=== PATIENT | female | born 1980 | race African-American/Black ===

== ENCOUNTER 2016-09-04 10:27 | Emergency (ER) | payer OTHER ==
--- NOTE | ~2016-09-04 | CT4 ---
[facility]. [facility] A Service of [facility] RADIOLOGY TEXT RESULTS PATIENT: FABI BENSON LOCATION: SED : 82 UNIT #: [id number] AGE: [address]: Steffi Temple SEX: F ORDER DR: [id number] [address] [address] [id number] MR#: [id number] #: [id number] NAME: FABI BENSON. : 1980 SEX: F STUDY DATE/TIME: 09/04/2016 12:00 UNIT: SED ROOM: STUDY DESCRIPTION: CT Abd and Pelv Wo Cont Attending Physician: Steffi Temple Pa-C Ordering Physician: Physician Non-Staff Primary Care Physician: Primary Care Physician No MEDICAL IMAGING REPORT This report is preliminary unless electronic signature is present. EXAM Abdomen and pelvis CT, no contrast, 09/04/2016 INDICATIONS 36-year-old female with urinary tract infection and fever, protein and blood in the urine for 3 days. Status post cholecystectomy. TECHNIQUE Noncontrast abdomen and pelvis CT was performed. This CT exam was performed with one or more of the following radiation dose reduction techniques: Automatic exposure control, adjustment of mA and/or kV according to patient size, and iterative reconstruction. COMPARISON 06/30/[address] ABDOMEN: Exam markedly degraded by noncontrast technique. Included lung bases are clear. No effusion or pericardial effusion. Aorta unremarkable. Spleen, adrenal glands and pancreas are unremarkable. Gallbladder surgically absent. Liver unremarkable. Kidneys demonstrate no hydronephrosis on either side. Minimal, if any induration surrounding the proximal ureter on the right. Correlate with signs or symptoms of ascending urinary tract infection or early changes of pyelonephritis. CT PELVIS: Bladder unremarkable. There is leiomyomatous change of the uterus to a mild degree. No drainable fluid collection in the pelvis. There is diverticulosis. No adnexal mass. Bowel demonstrates no obstruction or focal inflammatory change. Appendix normal. Both ovaries demonstrate follicles bilaterally. Inguinal canals are unremarkable. There is no suspicious bone lesion. [facility] A Service of [facility] RADIOLOGY TEXT RESULTS PATIENT: FABI BENSON LOCATION: [facility] [place] : [birth year] UNIT #: [id number] AGE: [address]: Steffi Temple SEX: F ORDER DR: IMPRESSION 1. No hydronephrosis or radiopaque stone associated with either kidney. 2. There is perhaps some minimal induration of the fat planes surrounding the proximal right ureter and right renal pelvis on axial images. This could reflect sequelae of ascending urinary tract infection or early changes of pyelonephritis in the appropriate clinical context. Correlate with urinalysis. 3. The appendix is normal, gallbladder surgically absent. Dictated by... Pasha Douglas M.D. THIS IS AN ELECTRONICALLY VERIFIED REPORT Pasha Douglas M.D. at 09/05/2016 7:29 AM MORALES/anny TD: 09/04/2016 18:16 JOB #: [id number] MEDICAL IMAGING REPORT
[~2016-09-04 10:27] MED LIST: NO MEDICATIONS; YASMIN 28 TABLE1 TAB PO
[2016-09-04 10:45] LABS: URINE SOURCE CLEAN CATCH
[2016-09-04 10:47] LABS: URINE APPEARANCE SL CLOUDY; URINE BILIRUBIN NEG (NEG); URINE BLOOD 3+ (NEG); URINE COLOR DK YELLOW; URINE GLUCOSE NEG (NORM); URINE KETONE NEG (NEG); URINE LEUKOCYTE ESTERASE NEG (NEG); URINE NITRATE NEG (NEG); URINE PH 7.5 (5-8); URINE PROTEIN 1+ (NEG)
[2016-09-04 10:52] LABS: MICRO INDICATED? YES
[2016-09-04 10:55] LABS: URINE BACTERIA NEG (NEG); URINE RBC INNUM /[HPF] (0-2); URINE SQUAMOUS EPITHELIAL CELL MANY /[HPF]; URINE WBC 0-2 /[HPF] (0-5)
== END 2016-09-04 12:51 | disposition home or self-care (01) ==
LOC: SED 10:27
PROVIDERS: Physician Assistant
DX: N39.0 Urinary tract infection, site not specified (principal); I10 Essential (primary) hypertension; Z90.49 Acquired absence of other specified parts of digestive tract
CPT/HCPCS: 74176; 81003; 84703; 99284